=== PATIENT | female | born 2000 | race Asian ===

== ENCOUNTER 2020-09-14 12:59 | Emergency (ER) | payer MEDICAID ==
[2020-09-14 13:28] VITALS: BP 126/84
== END 2020-09-14 15:58 | disposition home or self-care (01) ==
LOC: ER 13:00
DX: S63.636A Sprain of interphalangeal joint of right little finger, initial encounter (principal); S60.051A Contusion of right little finger without damage to nail, initial encounter; M79.644 Pain in right finger(s); X58.XXXA Exposure to other specified factors, initial encounter; Y93.89 Activity, other specified; Y92.89 Other specified places as the place of occurrence of the external cause; Y99.8 Other external cause status
CPT/HCPCS: 29130; 73140; 99283

== ENCOUNTER 2024-04-11 14:59 | Emergency (ER) | payer MEDICAID ==
[~2024-04-11] VITALS: Ht 154.9 cm; Wt 136.0 kg
[2024-04-11 15:10] VITALS: BP 129/95; PULSE 96; RESP 16; TEMP 98.3; O2SAT 98
[2024-04-11] MEDS ORDERED: KEN0.1O TOP (16:51)
== END 2024-04-11 17:01 | disposition home or self-care (01) ==
LOC: ER 14:59
DX: L25.9 Unspecified contact dermatitis, unspecified cause (principal)
CPT/HCPCS: 99283